=== PATIENT | male | born 1980 | race Two or more races ===

== ENCOUNTER 2025-02-12 08:10 | Outpatient (CLI) | payer MEDICAID, SELFPAY ==
--- NOTE | 2025-02-12 09:00 | XR_ITS ---
Examination: Ultrasound-guided needle placement right systolic vein. Dual-lumen central line placement (PICC line). Fluoroscopy AP chest, portable, single view Exam date and time:February 12, 2025 0919 hours INDICATIONS: Need for long-term intravenous antibiotic therapy for osteomyelitis A timeout was completed verifying correct patient, procedure, site, positioning Informed consent provided Technique: The patient's site was prepped and draped in sterile fashion. Maximum Sterile Barrier Technique used including cap, mask, sterile gown, sterile gloves, and sterile full body drape. If ultrasound technique used: sterile gel and sterile probe covers. Hand Hygiene performed using proper scrub, soap and water, or alcohol-based hand rub. Site right portable apparatus utilized to confirm patency of the right basilic vein, utilizing ultrasonographic guidance successful 21-gauge needle puncture right basilic vein. Ultrasound images recorded and stored. 5 cc 1% lidocaine administered for local anesthetic. Successful micropuncture with a 21-gauge needle is performed. 0.18 wire guide is then introduced into the SVC under fluoroscopic guidance. Dual-lumen catheter dilator is then introduced, followed by the catheter in the SVC and proper position under fluoroscopic guidance. Successful aspiration of blood and flushing with heparinized saline is then performed in the 2 venous limbs. The catheter sutured in place. Findings: Under fluoroscopy, the tip of the catheter is in good position in the vena cava. Portable chest x-ray, post line placement is ordered. Estimated blood loss 3 cc The patient tolerated the procedure well and was in stable and satisfactory condition at completion of the procedure Impression: Successful ultrasound-guided needle placement right basilic vein Successful placement of dual lumen central line, percutaneous Fluoroscopy 0.1 minute radiation dose 1.89 milligray 1 spot fluoroscopic chest film. AP chest completion procedure demonstrates satisfactory position central line. May use central line.
[2025-02-12 09:25] VITALS: BP 137/88; PULSE 104; RESP 19; TEMP 36.4; O2SAT 97
[2025-02-12] MEDS: HEPARIN SOD LOCK SYR 100 UNIT/ML 500 UNIT STFIELD (09:40)
[2025-02-12] MEDS: LIDOCAINE INJ PF 1% 30 ML VIAL INFL (09:40)
[2025-02-12 10:02] VITALS: BMI 32.8
[2025-02-12 10:26] VITALS: BP 137/91; PULSE 99; RESP 14; O2SAT 94
[2025-02-12 10:38] VITALS: BP 114/73; PULSE 100; RESP 15; TEMP 36.4; O2SAT 98
[2025-02-12 10:45] VITALS: BP 118/74; PULSE 98; RESP 15; O2SAT 97
[2025-02-12 11:00] VITALS: BP 144/80; PULSE 100; RESP 14; TEMP 36.4; O2SAT 99
== END 2025-02-12 11:09 | disposition home or self-care (01) ==
PROVIDERS: PCP Hospitalist; Referring Provider Hospitalist; Visit Provider Hospitalist
DX: M86.671 Other chronic osteomyelitis, right ankle and foot (principal)
CPT/HCPCS: 36558; 76937; C1751; C1894; J1642; J3490; J7050